=== PATIENT | male | born 1970 | race American Indian/Alaskan Native ===

== ENCOUNTER 2018-09-01 18:27 | Emergency (ER) | payer BC ==
[2018-09-01 19:08] VITALS: BP 152/102; PULSE 80; RESP 18; TEMP 98.4; O2SAT 99
--- NOTE | 2018-09-01 19:32 | ED PDOC ---
Arrival/HPI - General Historian: Patient - History of Present Illness Narrative History of Present Illness (Text): 09/01/18 19:28 CC: weakness, dizziness, ?bite HPI: 48 yo male w/ no significant PMH comes to ED for evaluation of numbness, weakness, dizziness, and ? bite. Patient states about 2 hours ago he was cutting his hedges at home when he felt a weird sensation on his left dorsal wrist. Patient believes he was bit by something but does now know what. After the bite, patient started having a sensation of numbess and weakness in left wrist. It radiated to the right wrist but the weakness was limited only to the upper extremities. Patient then started to feel dizzy. Patient became worried and asked to take him to the ED. Patient states since he has been in the ED he feels much better now. He no longer has any of the symptoms that he came to the ED to be evaluated for. Denies rash, fevers, chills, pain, chest pain, sob, n/v, constipation or diarrhea, and dysuria. Time/Duration: 1-3 hours Symptom Onset: Sudden Symptom Course: Resolved Quality: Other (numbness. weakness) Activities at Onset: Light Context: Walking <Yara Smith - Last Filed: 09/01/18 19:43> <Kai Joyce - Last Filed: 09/01/18 19:50> - General Chief Complaint: Allergic Reaction Time Seen by Provider: 09/01/18 19:19 Past Medical History - Past History Past History: No Previous - Past Medical History Past Medical History: No Previous - Psychiatric Hx Substance Use: No - Anesthesia Hx Anesthesia: No Hx Anesthesia Reactions: No Hx Malignant Hyperthermia: No <Yara Smith - Last Filed: 09/01/18 19:43> Family/Social History Family/Social History: No Known Family HX Smoking Status: Never Smoked Hx Alcohol Use: No Hx Substance Use: No <Yara Smith - Last Filed: 09/01/18 19:43> Allergies/Home Meds <Yara Smith - Last Filed: 09/01/18 19:43> <Kai Joyce - Last Filed: 09/01/18 19:50> Allergies/Adverse Reactions: Allergies No Known Allergies Allergy (Verified 09/01/18 18:49) Review of Systems - Review of Systems Constitutional: Normal Eyes: Normal ENT: Normal Respiratory: Normal. absent: SOB, Cough Cardiovascular: Normal. absent: Chest Pain, Palpitations Genitourinary Male: Normal. absent: Dysuria, Frequency Musculoskeletal: Normal. absent: Arthralgias, Myalgias Skin: Normal. absent: Rash, Pruritis, Skin Lesions, Cellulitis Neurological: Normal. absent: Dizziness, Focal Weakness Endocrine: Normal. absent: Polyuria Hemo/Lymphatic: Normal Psychiatric: Normal. absent: Anxiety, Depression <Luis,Yara - Last Filed: 09/01/18 19:43> Physical Exam Vital Signs Reviewed: Yes Vital Signs Temp Pulse Resp BP Pulse Ox 09/01/18 18:28 98.4 F 80 18 152/102 H 99 Temperature: Afebrile Blood Pressure: Hypertensive Pulse: Regular Respiratory Rate: Normal Appearance: Positive for: Well-Appearing, Non-Toxic, Comfortable. No: Ill- Appearing, Unkept, Uncomfortable Pain Distress: None Mental Status: Positive for: Alert and Oriented X 3. No: Confused, Agitated, Lethargic - Systems Exam Head: Present: Atraumatic, Normocephalic. No: Tenderness Pupils: Present: PERRL. No: Sluggish Extroacular Muscles: Present: EOMI. No: Gaze Palsy Conjunctiva: Present: Normal Mouth: Present: Moist Mucous Membranes Respiratory/Chest: Present: Clear to Auscultation, Good Air Exchange. No: Respiratory Distress, Accessory Muscle Use Cardiovascular: Present: Regular Rate and Rhythm, Normal S1, S2. No: Murmurs Abdomen: Present: Normal Bowel Sounds. No: Tenderness, Distention, Peritoneal Signs Upper Extremity: Present: Normal Inspection. No: Cyanosis, Edema Lower Extremity: Present: Normal Inspection. No: Edema Neurological: Present: GCS=15, CN II-XII Intact, Speech Normal Skin: Present: Warm, Dry, Normal Color. No: Rashes Psychiatric: Present: Alert, Oriented x 3, Normal Insight, Normal Concentration <LuisFaustoluis manuel - Last Filed: 09/01/18 19:43> Vital Signs Temp Pulse Resp BP Pulse Ox 09/01/18 18:28 98.4 F 80 18 152/102 H 99 <Kai Joyce - Last Filed: 09/01/18 19:50> Medical Decision Making ED Course and Treatment: 09/01/18 19:35 Impression 48 yo male w/ no PMH comes to ED for evaluation of numbness, weakness, dizziness s/p ? bite. All symptoms have resolved w.o treatment Plan -likely 2/2 transient allergic reaction -symptoms resolved Prior Visits All prior documentation and lab work reviewed for evaluation Progress Notes Symptoms resolved after admission into ED. Vitals reviewed and stable. Patient ambulatory w.o complaints. Re-evaluation Time: 19:38 Reassessment Condition: Improved <Yara Smith - Last Filed: 09/01/18 19:43> ED Course and Treatment: 09/01/18 19:48 Patient Seen with Resident: In agreement with resident note which contains more details about the patient. Patient evaluated with resident, came up with plan and treatment together. Physician agrees with clinical findings. <Kai Joyce - Last Filed: 09/01/18 19:50> - PA / MARKETING CONTENT MANAGER / Resident Statement MD/DO has reviewed & agrees with the documentation as recorded. MD/DO has examined the patient and agrees with the treatment plan. - Scribe Statement The provider has reviewed the documentation as recorded by the Scribe Shant Lara All medical record entries made by the Scribe were at my direction and personally dictated by me. I have reviewed the chart and agree that the record accurately reflects my personal performance of the history, physical exam, medical decision making, and the department course for this patient. I have also personally directed, reviewed, and agree with the discharge instructions and disposition. <Kai Joyce - Last Filed: 09/01/18 19:50> Disposition/Present on Arrival - Present on Arrival Any Indicators Present on Arrival: No History of DVT/PE: No History of Uncontrolled Diabetes: No Urinary Catheter: No History of Decub. Ulcer: No History Surgical Site Infection Following: None - Disposition Have Diagnosis and Disposition been Completed?: Yes Disposition Time: 19:39 Patient Plan: Discharge <Yara Smith - Last Filed: 09/01/18 19:43> <Kai Joyce - Last Filed: 09/01/18 19:50> - Disposition Diagnosis: Allergic reaction Disposition: HOME/ ROUTINE Patient Problems: Current Active Problems Problem Status Onset Allergic reaction Acute Condition: GOOD Additional Instructions: 1. Please followup with primary medical doctor within a week of discharge for repeat blood pressure measurement. Forms: [employer] (Amharic)
== END 2018-09-01 19:40 | disposition home or self-care (01) ==
LOC: ED 18:27
DX: T78.40XA Allergy, unspecified, initial encounter (principal)